=== PATIENT | female | born 2000 | race Two or more races ===

== ENCOUNTER 2024-03-23 00:33 | Outpatient (CLI) | payer OTHER ==
[~2024-03-23] VITALS: Ht 144.8 cm; Wt 73.0 kg
[2024-03-23 00:18] VITALS: BP 133/84
[2024-03-23] MEDS ORDERED: PRENATAL + DHA1 EAC1 PO (01:16)
[2024-03-23 03:15] VITALS: BP 134/58
[2024-03-23 07:46] VITALS: BP 127/78; O2SAT 99
[2024-03-23 10:16] VITALS: BP 127/78
== END 2024-03-23 10:24 | disposition home or self-care (01) ==
LOC: OBS/DEL 00:33
PROVIDERS: ATTEND Obstetrics & Gynecology Gynecology
DX: O26.893 Other specified pregnancy related conditions, third trimester (principal); Z3A.38 38 weeks gestation of pregnancy

== ENCOUNTER 2024-03-23 12:26 | Inpatient (IN) | payer OTHER ==
[~2024-03-23] VITALS: Ht 144.8 cm; Wt 2.7 kg
[~2024-03-23 12:26] MED LIST: PRENATAL + DHA1 EAC1 PO
[2024-03-23 13:15] VITALS: BP 128/77
[2024-03-23 14:12] LABS: HEMATOCRIT 34.7 % (36.0-45.00); HEMOGLOBIN 11.7 g/dL (12.0-15.00); MEAN CORPUSCULAR HEMOGLOBIN 29.9 pg (27.00-32.0); MEAN CORPUSCULAR HGB CONC 33.6 g/dl (32.0-36.0); PLATELET COUNT 232 K/uL (150-450); RED CELL DISTRIBUTION WIDTH 16.4 % (11.5-14.5)
[2024-03-23 14:13] LABS: PH,URINE 7.5 (5.0-8.0); URINE APPEARANCE Cloudy; URINE BILIRRUBIN Negative (NEGATIVE); URINE BLOOD Negative; URINE COLOR Yellow; URINE GLUCOSE Negative (NEGATIVE); URINE KETONE Negative (NEGATIVE); URINE LEUKOCYTE Negative; URINE NITRATE Negative; URINE UROBILINOGEN 0.2 E.U./dl
[2024-03-23 14:14] LABS: URINE BACTERIA 144.8 uL (0.0-1933); URINE EPITHELIAL CELLS 20.7 uL (0.0-38.8); URINE RBC 3.2 uL (0.0-20.8); URINE WBC 6.1 uL (0.0-23.2)
[2024-03-23 14:15] LABS: URINE CAST 0.15 uL (0.0-1.40); URINE PROTEIN 300 (NEGATIVE)
[2024-03-23] MEDS ORDERED: RINGERS SOLUTION,LACTATED 1,000 ML IV SCH (14:15)
[2024-03-23 14:45] LABS: INR < 0.93; PARTIAL THROMBOPLASTIN TIME 24.5 SECONDS (22.0-34.0); PROTHROMBIN TIME 9.8 SECONDS (9.0-11.5)
[2024-03-23 14:49] LABS: ALBUMIN 2.3 gm/dL (3.4-5.0); BILIRUBIN TOTAL 0.21 mg/dL (0.3-1.2); CALCIUM 9.3 mg/dL (8.5-10.1); CREATININE SERUM 0.47 mg/dL (0.55-1.02); GFR 164.21; GLOBULINA 3.7 G/DL (2.4-3.5); POTASSIUM 4.79 mEq/L (3.5-5.1)
[2024-03-23 14:58] LABS: URIC ACID 4.8 mg/dL (2.5-7.5)
[2024-03-23 15:49] VITALS: BP 137/80
[2024-03-23] MEDS ORDERED: MORPHINE SULFATE 4 MG/ML CARTRIDGE IV PRN (18:15)
[2024-03-23 18:50] VITALS: BP 133/79
[2024-03-23 23:20] VITALS: BP 128/80
[2024-03-24 03:30] VITALS: BP 143/81
[2024-03-24 07:31] VITALS: BP 138/81
[2024-03-24] MEDS ORDERED: OXYTOCIN 500 ML IV ONE (08:00)
[2024-03-24] MEDS ORDERED: MORPHINE SULFATE 4 MG/ML VIAL IV STA (10:55)
[2024-03-24 10:57] VITALS: BP 149/78
[2024-03-24 15:30] VITALS: BP 138/78
[2024-03-24] MEDS ORDERED: CEFAZOLIN SODIUM 1,000 MG VIAL IV SCH (16:30)
[2024-03-24] MEDS ORDERED: MORPHINE SULFATE 4 MG/ML CARTRIDGE IV PRN (18:00)
[2024-03-24] MEDS ORDERED: KETOROLAC TROMETHAMINE 30 MG VIAL IV SCH (18:00)
[2024-03-24] MEDS ORDERED: ACETAMINOPHEN 500 MG GEL..CAP PO SCH (18:00)
[2024-03-24] MEDS ORDERED: OXYTOCIN 1,000 ML IV ONE (18:15)
[2024-03-24] MEDS ORDERED: RINGERS SOLUTION,LACTATED 1,000 ML IV SCH (18:15)
[2024-03-24] MEDS ORDERED: OXYTOCIN 10 UNITS/ML VIAL IV ONE (18:30)
[2024-03-24] MEDS ORDERED: ERYTHROMYCIN BASE OPHT 1GM EACH TUBE OP ONE (18:30)
[2024-03-24 22:29] VITALS: BP 137/81
[2024-03-25] MEDS ORDERED: ONDANSETRON HCL 2 MG/ML VIAL IV SCH
[2024-03-25 00:16] VITALS: BP 143/86
[2024-03-25] MEDS ORDERED: SIMETHICONE 125 MG CAPSULE PO SCH (01:00)
[2024-03-25] MEDS ORDERED: GABAPENTIN 300 MG CAPSULE PO SCH (01:00)
[2024-03-25 04:00] VITALS: BP 126/75
[2024-03-25 06:54] LABS: HEMATOCRIT 32.8 % (36.0-45.00); HEMOGLOBIN 10.9 g/dL (12.0-15.00); MEAN CELL VOLUME 88.8 fL (80.00-100.00); MEAN CORPUSCULAR HEMOGLOBIN 29.5 pg (27.00-32.0); MEAN CORPUSCULAR HGB CONC 33.3 g/dl (32.0-36.0); PLATELET COUNT 228 K/uL (150-450); RED BLOOD COUNT 3.69 M/uL (4.00-6.00); RED CELL DISTRIBUTION WIDTH 16.6 % (11.5-14.5)
[2024-03-25] MEDS ORDERED: OxyCODONE HCL/APAP UD (PERCOCET) PO PRN (08:00)
[2024-03-25] MEDS ORDERED: OxyCODONE HCL 5 MG TABLET (ROXICODONE) PO PRN (08:00)
[2024-03-25] MEDS ORDERED: ACETAMINOPHEN 325 MG TABLET PO PRN (08:00)
[2024-03-25] MEDS ORDERED: KETOROLAC TROMETHAMINE 10 MG TABLET PO SCH (08:00)
[2024-03-25 08:39] VITALS: BP 118/66
[2024-03-25] MEDS ORDERED: DOCUSATE SODIUM 100MG CAP PO SCH (09:00)
[2024-03-25 17:01] VITALS: BP 135/88
[2024-03-26 00:23] VITALS: BP 123/80
[2024-03-26 08:00] VITALS: BP 134/76
[2024-03-26 17:05] VITALS: BP 130/86
[2024-03-26 20:31] VITALS: BP 134/85
[2024-03-27] VITALS: BP 131/78
[2024-03-27 07:40] VITALS: BP 130/80
== END 2024-03-27 18:17 | disposition home or self-care (01) | DRG 788 ==
LOC: O/R 12:26 → LDR 12:26 → EDUNIT# 13:30 → LDR 18:15 → O/R 03-24 17:58 → OB/GYN 03-24 20:14
PROVIDERS: Obstetrics & Gynecology; ADMIT Obstetrics & Gynecology; ATTEND Obstetrics & Gynecology
PROC: 4A1HXCZ Monitoring of Products of Conception, Cardiac Rate, External Approach (ICD-10-PCS; 2024-03-23)
PROC: 10D00Z1 Extraction of Products of Conception, Low, Open Approach (ICD-10-PCS; principal; 2024-03-24 18:00)
DX: O82 Encounter for cesarean delivery without indication (principal); O62.1 Secondary uterine inertia; Z3A.38 38 weeks gestation of pregnancy; Z37.0 Single live birth; Z20.822 Contact with and (suspected) exposure to COVID-19

== ENCOUNTER 2024-05-12 22:33 | Emergency (ER) | payer OTHER ==
[~2024-05-12] VITALS: Ht 144.8 cm; Wt 59.4 kg
[2024-05-13 00:49] LABS: HEMATOCRIT 38.9 % (36.0-45.00); HEMOGLOBIN 12.7 g/dL (12.0-15.00); MEAN CELL VOLUME 88.2 fL (80.00-100.00); MEAN CORPUSCULAR HEMOGLOBIN 28.7 pg (27.00-32.0); MEAN CORPUSCULAR HGB CONC 32.6 g/dl (32.0-36.0); PLATELET COUNT 372 K/uL (150-450); RED BLOOD COUNT 4.41 M/uL (4.00-6.00); RED CELL DISTRIBUTION WIDTH 15.8 % (11.5-14.5)
[2024-05-13 01:21] LABS: ALBUMIN 3.8 gm/dL (3.4-5.0); BILIRUBIN TOTAL 0.45 mg/dL (0.3-1.2); CALCIUM 9.1 mg/dL (8.5-10.1); CREATININE SERUM 0.56 mg/dL (0.55-1.02); GFR 134.15; GLOBULINA 3.4 G/DL (2.4-3.5); POTASSIUM 3.43 mEq/L (3.5-5.1); TOTAL PROTEIN 7.2 gm/dL (6.4-8.2)
[2024-05-13 02:26] LABS: PH,URINE 6.5 (5.0-8.0); URINE APPEARANCE Clear; URINE BILIRRUBIN Negative (NEGATIVE); URINE BLOOD Negative; URINE COLOR Yellow; URINE GLUCOSE Negative (NEGATIVE); URINE KETONE Negative (NEGATIVE); URINE LEUKOCYTE Negative; URINE NITRATE Negative; URINE PROTEIN 30 (NEGATIVE); URINE UROBILINOGEN 0.2 E.U./dl
[2024-05-13 02:29] LABS: URINE BACTERIA 821.3 uL (0.0-1933); URINE EPITHELIAL CELLS 43.5 uL (0.0-38.8); URINE WBC 9.7 uL (0.0-23.2)
[2024-05-13] MEDS ORDERED: ACETAMINOPHEN500 M1 PO (04:08)
[2024-05-13] MEDS ORDERED: HAIR, SKIN AND1 EAC1 PO (04:12)
== END 2024-05-13 | disposition home or self-care (01) ==
LOC: ER 22:35
PROVIDERS: General Practice
DX: R10.2 Pelvic and perineal pain (principal); R10.9 Unspecified abdominal pain; I10 Essential (primary) hypertension